=== PATIENT | male | born 1975 | race Caucasian/White ===

== ENCOUNTER 2017-08-10 09:33 | Emergency (ER) | payer OTHER, SELFPAY ==
[2017-08-10] MEDS ORDERED: Adacel (T-DAP) 0.5 ML VIAL ONE (09:47)
[2017-08-10] MEDS ORDERED: Bacitracin Zinc 1 Packet ONE (10:07)
== END 2017-08-10 10:18 | disposition home or self-care (01) ==
LOC: BURERS 09:33
DX: S51.811A Laceration without foreign body of right forearm, initial encounter (principal); F17.200 Nicotine dependence, unspecified, uncomplicated; W26.8XXA Contact with other sharp object(s), not elsewhere classified, initial encounter; Y92.69 Other specified industrial and construction area as the place of occurrence of the external cause
CPT/HCPCS: 12004; 90471; 90715

== ENCOUNTER 2017-08-18 19:25 | Emergency (ER) | payer SELFPAY ==
[2017-08-18] MEDS ORDERED: Cephalexin 500 MG CAP ONE (19:50)
== END 2017-08-18 19:55 | disposition home or self-care (01) ==
LOC: BURERS 19:25
DX: L76.32 Postprocedural hematoma of skin and subcutaneous tissue following other procedure (principal); F17.200 Nicotine dependence, unspecified, uncomplicated
CPT/HCPCS: 99282